=== PATIENT | female | born 1965 | race Asian ===

== ENCOUNTER 2016-12-31 22:31 | Inpatient (IN) | payer MEDICAID ==
[~2016-12-31] VITALS: Ht 170.2 cm; Wt 79.3 kg
[~2016-12-31 22:31] MED LIST: AMLO10CA PO; ATOR40TA52 PO; BELL30TI2; BENA10TA9; DICY20TA66 PO; GABA-494; IBUP200C10 PO; INSLANTI SC; INSLISPI; LEVO75TA6 PO; LIRA18IN2 SC; METF-370; OMEPRAZOLE; PRED1PAK11; PRO125RS; [UNRECOGNIZED DRUG - CODE] PO
[2016-12-31 23:03] LABS: Basophils # (auto) 0 uL; Basophils % (auto) 0.7 % (0.0-2.0); CONDITION Y; Eosinophils # (auto) 0.2 uL; Eosinophils % (auto) 3.5 % (0.0-7.0); Hematocrit 41.5 % (36.0-46.0); Lymphocytes # (auto) 2.3 uL; Lymphocytes % (auto) 35.1 % (10.0-50.0); Mean Corpuscular Hemoglobin 30.6 pg (28.0-32.0); Mean Corpuscular Hgb Conc. 33.6 g/dL (32.0-36.0); Mean Corpuscular Volume 91.2 fL (80.0-100.0); Mean Platelet Volume 8.5 fL (7.4-10.4); Monocytes # (auto) 0.4 uL; Monocytes % (auto) 5.8 % (0.0-12.0); Neutrophils # (auto) 3.6 uL; Neutrophils % (auto) 54.9 % (37.0-80.0); Platelet Count (auto) 258 10^3/uL (140-450); Red Cell Distribution Width 14.2 % (11.6-16.0); White Blood Cell 6.5 10^3/uL (4.4-10.8)
[2016-12-31 23:20] LABS: Albumin 3.8 g/dL (3.4-5.0); BUN/Creatinine Ratio 37.9; Potassium 4.2 mmol/L (3.5-5.1)
[2016-12-31 23:22] LABS: Bilirubin, Total 0.4 mg/dL (0.2-1.0); Total Protein 6.9 g/dL (6.4-8.2)
[2017-01-01] MEDS ORDERED: HYDROmorphone HCL 2 MG/ML VL IV ONE (01:15)
[2017-01-01] MEDS ORDERED: ONDANSETRON HCL 4 MG/2 ML VIAL IV ONE (01:15)
[2017-01-01] MEDS ORDERED: PROMETHAZINE HCL 25 MG/ML 1ML ONE (02:31)
[2017-01-01] MEDS ORDERED: PROMETHAZINE HCL 25 MG/ML 1ML IV ONE (02:45)
[2017-01-01] MEDS ORDERED: SODIUM CHLORIDE 0.9% 1,000 ML IV SCH (06:24)
[2017-01-01] MEDS ORDERED: ACETAMINOPHEN 325 MG TAB PO PRN (06:30)
[2017-01-01] MEDS ORDERED: MORPHINE SULF INJ 2 MG/ML SYRINGE 1ML IV PRN (06:30)
[2017-01-01] MEDS ORDERED: NITROGLYCERIN 0.4 MG SL TAB SL PRN (06:30)
[2017-01-01] MEDS ORDERED: DEXTROSE (50%) 50ML SYRG IV PRN (06:30)
[2017-01-01] MEDS ORDERED: TEMAZEPAM 15 MG CAP PO PRN (06:30)
[2017-01-01] MEDS: LEVOTHYROXINE SODIUM 25 MCG TAB PO SCH (06:44)
[2017-01-01 08:45] VITALS: BP 147/77
[2017-01-01] MEDS: HYDROcodone-ACET 5/325MG TAB PO PRN ×3 (09:44→22:45)
[2017-01-01] MEDS: amLODIPine BESYLATE 5 MG TAB PO SCH (09:45)
[2017-01-01] MEDS: BENAZEPRIL HCL 10 MG TAB PO SCH (09:46)
[2017-01-01] MEDS: FAMOTIDINE 20 MG TAB PO SCH ×2 (09:46→22:45)
[2017-01-01 10:21] VITALS: BP 147/77
[2017-01-01] MEDS: ACCU-CHEK COMFORT CURVE STRIP VI SCH ×3 (11:53→23:30)
[2017-01-01] MEDS: InsuLIN REG 1unit/0.01ml Soln (100units/ml) SC SCH ×3 (12:14→23:30)
[2017-01-01] MEDS ORDERED: BENA10TA9 PO (12:52)
[2017-01-01] MEDS ORDERED: PANT40TA2 PO (12:52)
[2017-01-01] MEDS ORDERED: ASPI81CH43 PO (12:52)
[2017-01-01] MEDS ORDERED: METF-370 PO (12:52)
[2017-01-01] MEDS ORDERED: GABA-494 PO (12:52)
[2017-01-01] MEDS ORDERED: INSLISPI SC (12:52)
[2017-01-01] MEDS ORDERED: INSLANTI SC (12:52)
[2017-01-01 17:00] VITALS: BP 150/75
[2017-01-01] MEDS: MORPHINE SULF INJ 2 MG/ML SYRINGE 1ML IV PRN (20:56)
[2017-01-01 21:40] VITALS: BP 158/77
[2017-01-01 22:00] VITALS: BP 158/77
[2017-01-01] MEDS: ATORVASTATIN 20 MG TAB PO SCH (22:44)
[2017-01-02] MEDS: ONDANSETRON HCL 4 MG/2 ML VIAL IV PRN ×5 (00:55→22:22)
[2017-01-02] MEDS: MORPHINE SULF INJ 2 MG/ML SYRINGE 1ML IV PRN ×5 (00:56→22:22)
[2017-01-02] MEDS: SODIUM CHLORIDE 0.9% 1,000 ML IV SCH ×3 (01:00→23:03)
[2017-01-02] MEDS: InsuLIN REG 1unit/0.01ml Soln (100units/ml) SC SCH ×4 (05:37→23:40)
[2017-01-02] MEDS: ACCU-CHEK COMFORT CURVE STRIP VI SCH ×4 (05:37→23:40)
[2017-01-02 06:00] VITALS: BP 154/85
[2017-01-02] MEDS: LEVOTHYROXINE SODIUM 25 MCG TAB PO SCH (06:14)
[2017-01-02 06:38] LABS: Basophils # (auto) 0.1 uL; Basophils % (auto) 0.8 % (0.0-2.0); CONDITION Y; Eosinophils # (auto) 0.3 uL; Eosinophils % (auto) 3.8 % (0.0-7.0); Hematocrit 39.7 % (36.0-46.0); Hemoglobin 13.4 g/dL (12.2-16.2); Lymphocytes % (auto) 27.5 % (10.0-50.0); Mean Corpuscular Hemoglobin 31.2 pg (28.0-32.0); Mean Corpuscular Hgb Conc. 33.8 g/dL (32.0-36.0); Mean Corpuscular Volume 92.3 fL (80.0-100.0); Mean Platelet Volume 8.4 fL (7.4-10.4); Monocytes # (auto) 0.4 uL; Monocytes % (auto) 5.9 % (0.0-12.0); Neutrophils # (auto) 4.5 uL; Platelet Count (auto) 238 10^3/uL (140-450); Red Cell Distribution Width 14.5 % (11.6-16.0); White Blood Cell 7.2 10^3/uL (4.4-10.8)
[2017-01-02 06:48] LABS: INR 1.09 (0.9-1.15); Prothrombin Time 11.9 sec (9.37-12.3)
[2017-01-02 07:02] LABS: Calcium 8.3 mg/dL (8.5-10.1); Potassium 4.4 mmol/L (3.5-5.1)
[2017-01-02 07:06] LABS: Albumin 3.2 g/dL (3.4-5.0); BUN/Creatinine Ratio 36.8; Total Protein 6.1 g/dL (6.4-8.2)
[2017-01-02] MEDS: BENAZEPRIL HCL 10 MG TAB PO SCH (09:20)
[2017-01-02] MEDS: FAMOTIDINE 20 MG TAB PO SCH ×2 (09:20→22:21)
[2017-01-02] MEDS: amLODIPine BESYLATE 5 MG TAB PO SCH (09:20)
[2017-01-02] MEDS ORDERED: ENOXAPARIN SOD 80 MG/0.8ML SYRINGE SC ONE (11:45)
[2017-01-02 14:32] LABS: Urine Bilirubin Negative (Negative); Urine Blood 1+ /uL (Negative); Urine Color Colorless (Yellow); Urine Glucose 4+ mg/dL (Normal); Urine Ketone 4+ (Negative); Urine Mucus FEW (None Seen); Urine Nitrite Negative (Negative); Urine RBC 11 /hpf (0 - 4); Urine Urobilinogen Normal (Negative)
[2017-01-02 17:50] VITALS: BP 145/73
[2017-01-02] MEDS: HYDROcodone-ACET 5/325MG TAB PO PRN (20:44)
[2017-01-02 22:00] VITALS: BP 141/76
[2017-01-02] MEDS: DOCUSATE SOD 100 MG CAP PO SCH (22:21)
[2017-01-02] MEDS: GABAPENTIN 100 MG CAP PO SCH (22:21)
[2017-01-02] MEDS: ATORVASTATIN 20 MG TAB PO SCH (22:21)
[2017-01-03] MEDS: ONDANSETRON HCL 4 MG/2 ML VIAL IV PRN ×2 (04:44→09:03)
[2017-01-03] MEDS: MORPHINE SULF INJ 2 MG/ML SYRINGE 1ML IV PRN ×2 (04:44→09:03)
[2017-01-03] MEDS: InsuLIN REG 1unit/0.01ml Soln (100units/ml) SC SCH ×4 (06:00→23:46)
[2017-01-03] MEDS: ACCU-CHEK COMFORT CURVE STRIP VI SCH ×4 (06:07→23:46)
[2017-01-03 06:22] VITALS: BP 158/79
[2017-01-03] MEDS: SODIUM CHLORIDE 0.9% 1,000 ML IV SCH ×3 (06:26→21:06)
[2017-01-03] MEDS: LEVOTHYROXINE SODIUM 25 MCG TAB PO SCH (06:27)
[2017-01-03 06:42] LABS: Basophils # (auto) 0 uL; Basophils % (auto) 0.5 % (0.0-2.0); CONDITION Y; Eosinophils # (auto) 0.3 uL; Eosinophils % (auto) 3.7 % (0.0-7.0); Hematocrit 40.3 % (36.0-46.0); Hemoglobin 13.8 g/dL (12.2-16.2); Lymphocytes # (auto) 1.5 uL; Mean Corpuscular Hemoglobin 31.4 pg (28.0-32.0); Mean Corpuscular Hgb Conc. 34.2 g/dL (32.0-36.0); Mean Corpuscular Volume 91.9 fL (80.0-100.0); Mean Platelet Volume 8.1 fL (7.4-10.4); Monocytes # (auto) 0.6 uL; Monocytes % (auto) 7.4 % (0.0-12.0); Neutrophils # (auto) 5.6 uL; Neutrophils % (auto) 69.4 % (37.0-80.0); Platelet Count (auto) 242 10^3/uL (140-450); Red Cell Distribution Width 14.2 % (11.6-16.0); White Blood Cell 8.1 10^3/uL (4.4-10.8)
[2017-01-03 07:24] LABS: Albumin 3.1 g/dL (3.4-5.0); BUN/Creatinine Ratio 27.3; Calcium 8.6 mg/dL (8.5-10.1); Potassium 3.9 mmol/L (3.5-5.1); Total Protein 6.4 g/dL (6.4-8.2)
[2017-01-03] MEDS: BENAZEPRIL HCL 10 MG TAB PO SCH (09:02)
[2017-01-03] MEDS: amLODIPine BESYLATE 5 MG TAB PO SCH (09:02)
[2017-01-03] MEDS: FAMOTIDINE 20 MG TAB PO SCH ×2 (09:03→21:06)
[2017-01-03] MEDS: DOCUSATE SOD 100 MG CAP PO SCH ×2 (09:03→21:06)
[2017-01-03 09:09] VITALS: BP 169/88
[2017-01-03 09:43] VITALS: BP 161/88
[2017-01-03] MEDS ORDERED: BUPIVACAINE W/ EPINEPH 0.25% INJ 50ML MDV ONE (09:53)
[2017-01-03] MEDS ORDERED: CLINDAMYCIN 600MG IV 50 ML IV ONE (09:53)
[2017-01-03] MEDS ORDERED: MIDAZOLAM HCL 1MG/1ML-2 ML VIAL ONE (10:04)
[2017-01-03] MEDS ORDERED: fentaNYL CITRATE 100 MCG/2 ML VL ONE (10:04)
[2017-01-03] MEDS ORDERED: ROCURONIUM 10MG/ML 10ML VIAL IV ONE (10:09)
[2017-01-03] MEDS ORDERED: PROPOFOL 10 MG/ML 20 ML IV ONE (10:09)
[2017-01-03] MEDS ORDERED: PHENYLEPHRINE HCL 10 MG/ML VL ONE (10:17)
[2017-01-03] MEDS ORDERED: GLYCOPYRROLATE 0.2 MG/ML 1ML VIAL ONE (11:19)
[2017-01-03] MEDS ORDERED: NEOSTIGMINE 1 MG/ML INJ (10mg/10ML VIAL) ONE (11:19)
[2017-01-03] MEDS ORDERED: ONDANSETRON HCL 4 MG/2 ML VIAL ONE (11:19)
[2017-01-03] MEDS ORDERED: METOCLOPRAMIDE HCL 5MG/ml INJ 2ml VIAL ONE (11:19)
[2017-01-03] MEDS ORDERED: diphenhdrAMINE HCL 50 MG/1 ML VL ONE (11:19)
[2017-01-03] MEDS ORDERED: ACCU-CHEK COMFORT CURVE STRIP VI ONE (11:30)
[2017-01-03] MEDS ORDERED: NALOXONE HCL 0.4 MG/ML VIAL IV PRN (11:30)
[2017-01-03] MEDS ORDERED: ONDANSETRON HCL 4 MG/2 ML VIAL IV ONE (11:30)
[2017-01-03] MEDS ORDERED: fentaNYL CITRATE 100 MCG/2 ML VL IV PRN (11:30)
[2017-01-03] MEDS ORDERED: HYDROmorphone HCL 2 MG/ML VL IV PRN (11:30)
[2017-01-03] MEDS ORDERED: LABETALOL HCL 5 MG/ML 4ML SYRINGE IV PRN (11:30)
[2017-01-03] MEDS ORDERED: ONDANSETRON HCL 4 MG/2 ML VIAL IV PRN (12:00)
[2017-01-03] MEDS ORDERED: ACETAMINOPHEN 500 MG TAB PO PRN (12:00)
[2017-01-03 13:19] VITALS: BP 133/61
[2017-01-03] MEDS: HYDROmorphone HCL 2 MG/ML VL IV PRN ×3 (15:03→19:11)
[2017-01-03] MEDS: CLINDAMYCIN 600MG IV 50 ML IV SCH (17:10)
[2017-01-03] MEDS: LACTULOSE 20Gm/30ML SOLN PO SCH ×2 (17:10→23:46)
[2017-01-03 17:42] VITALS: BP 117/66
[2017-01-03] MEDS: ATORVASTATIN 20 MG TAB PO SCH (21:05)
[2017-01-03] MEDS: GABAPENTIN 100 MG CAP PO SCH (21:06)
[2017-01-03 22:00] VITALS: BP 141/61
[2017-01-04] MEDS: HYDROmorphone HCL 2 MG/ML VL IV PRN ×2 (00:43→06:16)
[2017-01-04] MEDS: CLINDAMYCIN 600MG IV 50 ML IV SCH ×2 (02:08→09:19)
[2017-01-04 05:29] VITALS: BP 137/75
[2017-01-04] MEDS: LACTULOSE 20Gm/30ML SOLN PO SCH ×3 (06:15→17:58)
[2017-01-04] MEDS: ACCU-CHEK COMFORT CURVE STRIP VI SCH ×4 (06:16→22:19)
[2017-01-04] MEDS: LEVOTHYROXINE SODIUM 25 MCG TAB PO SCH (06:16)
[2017-01-04] MEDS: InsuLIN REG 1unit/0.01ml Soln (100units/ml) SC SCH ×4 (06:17→22:19)
[2017-01-04] MEDS: SODIUM CHLORIDE 0.9% 1,000 ML IV SCH ×3 (06:17→22:19)
[2017-01-04 07:56] LABS: Hematocrit 34.5 % (36.0-46.0); Hemoglobin 11.7 g/dL (12.2-16.2)
[2017-01-04 08:20] LABS: Albumin 2.7 g/dL (3.4-5.0); Potassium 4.2 mmol/L (3.5-5.1)
[2017-01-04 08:23] LABS: Total Protein 5.8 g/dL (6.4-8.2)
[2017-01-04] MEDS ORDERED: PROMETHAZINE HCL 25 MG/ML 1ML IV PRN (08:45)
[2017-01-04 09:00] VITALS: BP 150/89
[2017-01-04] MEDS ORDERED: DEXTROSE (50%) 50ML SYRG IV PRN (09:00)
[2017-01-04] MEDS: DOCUSATE SOD 100 MG CAP PO SCH ×2 (09:20→22:18)
[2017-01-04] MEDS: BENAZEPRIL HCL 10 MG TAB PO SCH (09:20)
[2017-01-04] MEDS: FAMOTIDINE 20 MG TAB PO SCH ×2 (09:21→22:18)
[2017-01-04] MEDS: amLODIPine BESYLATE 5 MG TAB PO SCH (09:21)
[2017-01-04] MEDS: ENOXAPARIN SOD 40 MG/0.4 ML SYRINGE SC SCH (09:22)
[2017-01-04] MEDS: LEVOFLOXACIN 500MG 100 ML IV SCH (10:21)
[2017-01-04 12:25] VITALS: BP 103/54
[2017-01-04] MEDS: HYDROcodone-ACET 10/325MG TAB PO PRN ×2 (13:36→19:35)
[2017-01-04 15:43] VITALS: BP 110/68
[2017-01-04 22:00] VITALS: BP 138/67
[2017-01-04] MEDS: ATORVASTATIN 20 MG TAB PO SCH (22:18)
[2017-01-04] MEDS: GABAPENTIN 100 MG CAP PO SCH (22:19)
[2017-01-05 05:51] VITALS: BP 134/61
[2017-01-05] MEDS: InsuLIN REG 1unit/0.01ml Soln (100units/ml) SC SCH ×4 (06:29→21:51)
[2017-01-05] MEDS: ACCU-CHEK COMFORT CURVE STRIP VI SCH ×4 (06:29→21:51)
[2017-01-05] MEDS: LEVOTHYROXINE SODIUM 25 MCG TAB PO SCH (06:29)
[2017-01-05 06:39] LABS: Basophils # (auto) 0 uL; Basophils % (auto) 0.5 % (0.0-2.0); CONDITION Y; Eosinophils # (auto) 0.2 uL; Eosinophils % (auto) 1.6 % (0.0-7.0); Hematocrit 33.1 % (36.0-46.0); Hemoglobin 11.2 g/dL (12.2-16.2); Lymphocytes # (auto) 0.9 uL; Mean Corpuscular Hemoglobin 31.4 pg (28.0-32.0); Mean Corpuscular Hgb Conc. 33.9 g/dL (32.0-36.0); Mean Corpuscular Volume 92.5 fL (80.0-100.0); Mean Platelet Volume 8.3 fL (7.4-10.4); Monocytes # (auto) 0.7 uL; Monocytes % (auto) 7.1 % (0.0-12.0); Neutrophils # (auto) 7.4 uL; Neutrophils % (auto) 80.8 % (37.0-80.0); Platelet Count (auto) 219 10^3/uL (140-450); Red Cell Distribution Width 14.4 % (11.6-16.0); White Blood Cell 9.2 10^3/uL (4.4-10.8)
[2017-01-05 07:08] LABS: Albumin 2.5 g/dL (3.4-5.0); BUN/Creatinine Ratio 34.9; Calcium 8.3 mg/dL (8.5-10.1)
[2017-01-05 07:11] LABS: Bilirubin, Total 0.9 mg/dL (0.2-1.0); Total Protein 5.6 g/dL (6.4-8.2)
[2017-01-05 09:00] VITALS: BP 137/70
[2017-01-05] MEDS: DOCUSATE SOD 100 MG CAP PO SCH ×2 (09:17→21:50)
[2017-01-05] MEDS: LEVOFLOXACIN 500MG 100 ML IV SCH (09:17)
[2017-01-05] MEDS: BENAZEPRIL HCL 10 MG TAB PO SCH (09:19)
[2017-01-05] MEDS: amLODIPine BESYLATE 5 MG TAB PO SCH (09:20)
[2017-01-05] MEDS: FAMOTIDINE 20 MG TAB PO SCH ×2 (09:21→21:50)
[2017-01-05] MEDS: ENOXAPARIN SOD 40 MG/0.4 ML SYRINGE SC SCH (09:21)
[2017-01-05] MEDS: HYDROcodone-ACET 10/325MG TAB PO PRN ×3 (09:24→22:05)
[2017-01-05] MEDS: SODIUM CHLORIDE 0.9% 1,000 ML IV SCH (11:25)
[2017-01-05 12:34] VITALS: BP 117/56
[2017-01-05 16:46] VITALS: BP 143/67
[2017-01-05] MEDS: GABAPENTIN 100 MG CAP PO SCH (21:50)
[2017-01-05] MEDS: ATORVASTATIN 20 MG TAB PO SCH (21:50)
[2017-01-05 22:00] VITALS: BP 126/64
[2017-01-06 05:00] VITALS: BP 133/70
[2017-01-06] MEDS: SODIUM CHLORIDE 0.9% 1,000 ML IV SCH ×2 (05:03→12:26)
[2017-01-06] MEDS: LEVOTHYROXINE SODIUM 25 MCG TAB PO SCH (06:34)
[2017-01-06] MEDS: ACCU-CHEK COMFORT CURVE STRIP VI SCH ×4 (06:34→22:31)
[2017-01-06] MEDS: InsuLIN REG 1unit/0.01ml Soln (100units/ml) SC SCH ×4 (06:34→22:35)
[2017-01-06] MEDS: HYDROcodone-ACET 10/325MG TAB PO PRN ×3 (06:35→22:34)
[2017-01-06 06:44] LABS: Basophils # (auto) 0 uL; Basophils % (auto) 0.4 % (0.0-2.0); CONDITION Y; Eosinophils # (auto) 0.5 uL; Eosinophils % (auto) 7.6 % (0.0-7.0); Hematocrit 31.3 % (36.0-46.0); Hemoglobin 10.6 g/dL (12.2-16.2); Lymphocytes # (auto) 1.4 uL; Lymphocytes % (auto) 20.4 % (10.0-50.0); Mean Corpuscular Hemoglobin 31.6 pg (28.0-32.0); Mean Corpuscular Hgb Conc. 33.7 g/dL (32.0-36.0); Mean Corpuscular Volume 93.7 fL (80.0-100.0); Mean Platelet Volume 8.1 fL (7.4-10.4); Monocytes # (auto) 0.7 uL; Monocytes % (auto) 9.5 % (0.0-12.0); Neutrophils # (auto) 4.3 uL; Neutrophils % (auto) 62.1 % (37.0-80.0); Platelet Count (auto) 235 10^3/uL (140-450); Red Cell Distribution Width 14.1 % (11.6-16.0)
[2017-01-06 07:12] LABS: Potassium 3.7 mmol/L (3.5-5.1)
[2017-01-06 07:26] LABS: Albumin 2.3 g/dL (3.4-5.0); BUN/Creatinine Ratio 29.7; Calcium 8.2 mg/dL (8.5-10.1)
[2017-01-06 07:28] LABS: Bilirubin, Total 0.6 mg/dL (0.2-1.0); Total Protein 5.5 g/dL (6.4-8.2)
[2017-01-06] MEDS: LEVOFLOXACIN 500MG 100 ML IV SCH (08:48)
[2017-01-06] MEDS: FAMOTIDINE 20 MG TAB PO SCH ×2 (08:49→22:35)
[2017-01-06] MEDS: DOCUSATE SOD 100 MG CAP PO SCH ×2 (08:49→22:35)
[2017-01-06] MEDS: ENOXAPARIN SOD 40 MG/0.4 ML SYRINGE SC SCH (08:49)
[2017-01-06] MEDS: amLODIPine BESYLATE 5 MG TAB PO SCH (08:55)
[2017-01-06] MEDS: BENAZEPRIL HCL 10 MG TAB PO SCH (08:55)
[2017-01-06 09:00] VITALS: BP 124/60
[2017-01-06 12:08] VITALS: BP 118/63
[2017-01-06 12:49] VITALS: BP 118/63
[2017-01-06 16:33] VITALS: BP 129/72
[2017-01-06 22:00] VITALS: BP 133/55
[2017-01-06] MEDS: GABAPENTIN 100 MG CAP PO SCH (22:35)
[2017-01-06] MEDS: ATORVASTATIN 20 MG TAB PO SCH (22:35)
[2017-01-07] VITALS (8 sets, daily range): BP systolic 119–150; BP diastolic 64–71
[2017-01-07] MEDS: SODIUM CHLORIDE 0.9% 1,000 ML IV SCH ×2 (03:50→16:45)
[2017-01-07] MEDS: ACCU-CHEK COMFORT CURVE STRIP VI SCH ×4 (06:32→21:40)
[2017-01-07] MEDS: InsuLIN REG 1unit/0.01ml Soln (100units/ml) SC SCH ×4 (06:32→21:40)
[2017-01-07] MEDS: LEVOTHYROXINE SODIUM 25 MCG TAB PO SCH (06:34)
[2017-01-07] MEDS: HYDROcodone-ACET 10/325MG TAB PO PRN ×3 (06:35→21:40)
[2017-01-07] MEDS: ENOXAPARIN SOD 40 MG/0.4 ML SYRINGE SC SCH (11:01)
[2017-01-07] MEDS: LEVOFLOXACIN 500MG 100 ML IV SCH (11:01)
[2017-01-07] MEDS: amLODIPine BESYLATE 5 MG TAB PO SCH (11:02)
[2017-01-07] MEDS: BENAZEPRIL HCL 10 MG TAB PO SCH (11:02)
[2017-01-07] MEDS: FAMOTIDINE 20 MG TAB PO SCH ×2 (11:02→21:40)
[2017-01-07] MEDS: DOCUSATE SOD 100 MG CAP PO SCH ×2 (11:03→21:39)
[2017-01-07] MEDS: GABAPENTIN 100 MG CAP PO SCH (21:40)
[2017-01-07] MEDS: ATORVASTATIN 20 MG TAB PO SCH (21:40)
[2017-01-08 05:00] VITALS: BP 141/71
[2017-01-08] MEDS: SODIUM CHLORIDE 0.9% 1,000 ML IV SCH (06:08)
[2017-01-08] MEDS: LEVOTHYROXINE SODIUM 25 MCG TAB PO SCH (06:50)
[2017-01-08] MEDS: ACCU-CHEK COMFORT CURVE STRIP VI SCH ×3 (06:50→17:00)
[2017-01-08] MEDS: InsuLIN REG 1unit/0.01ml Soln (100units/ml) SC SCH ×3 (06:51→17:00)
[2017-01-08 07:25] VITALS: BP 154/70
[2017-01-08] MEDS: HYDROcodone-ACET 10/325MG TAB PO PRN (08:21)
[2017-01-08] MEDS ORDERED: FLUCONAZOLE 100 MG TAB PO ONE (09:30)
[2017-01-08] MEDS: DOCUSATE SOD 100 MG CAP PO SCH (09:48)
[2017-01-08] MEDS: amLODIPine BESYLATE 5 MG TAB PO SCH (09:48)
[2017-01-08] MEDS: BENAZEPRIL HCL 10 MG TAB PO SCH (09:48)
[2017-01-08] MEDS: LEVOFLOXACIN 500MG 100 ML IV SCH (09:48)
[2017-01-08] MEDS: FAMOTIDINE 20 MG TAB PO SCH (09:48)
[2017-01-08] MEDS: ENOXAPARIN SOD 40 MG/0.4 ML SYRINGE SC SCH (09:50)
[2017-01-08 12:13] VITALS: BP 145/72
[2017-01-08 15:32] VITALS: BP 142/70
[2017-01-08 16:35] VITALS: BP 142/70
== END 2017-01-08 19:30 | DRG 301 ==
LOC: EDBD 22:31 → ER 22:31 → TELE 22:32 → TELE-EAST 01-01 08:46
PROVIDERS: ADMIT Nurse Practitioner; ATTEND Internal Medicine
PROC: 0SRS01A Replacement of Left Hip Joint, Femoral Surface with Metal Synthetic Substitute, Uncemented, Open Approach (ICD-10-PCS; principal; 2017-01-03 10:03)
DX: S72.042A Displaced fracture of base of neck of left femur, initial encounter for closed fracture (principal); I10 Essential (primary) hypertension; G47.00 Insomnia, unspecified; E11.9 Type 2 diabetes mellitus without complications; K57.90 Diverticulosis of intestine, part unspecified, without perforation or abscess without bleeding; K59.00 Constipation, unspecified; W18.39XA Other fall on same level, initial encounter; J98.11 Atelectasis; E03.9 Hypothyroidism, unspecified; Z79.4 Long term (current) use of insulin; Z83.3 Family history of diabetes mellitus; Z90.710 Acquired absence of both cervix and uterus; Z90.49 Acquired absence of other specified parts of digestive tract; Z88.0 Allergy status to penicillin; Z88.2 Allergy status to sulfonamides; Z79.899 Other long term (current) drug therapy; Y93.89 Activity, other specified; Y92.098 Other place in other non-institutional residence as the place of occurrence of the external cause; Y99.8 Other external cause status
CPT/HCPCS: 36415; 51702; 71010; 73501; 73502; 73562; 80053; 81001; 82962; 83036; 84702; 85014; 85018; 85025; 85610; 86850; 86900; 86901; 93005; 96374; 96375; 97110; 97116; 97163; 97530; A4565; J1815; J1956; J2250; J2405; J2704; J3490